=== PATIENT | female | born 1985 | race Caucasian/White ===

== ENCOUNTER 2017-05-01 22:32 | Emergency (ER) | payer OTHER ==
[2017-05-02 00:24] LABS: BASOPHIL % 1.6 % (0-2); PLATELET COUNT 174 x10^3mcL (130-400); RED CELL DISTRIBUTION WIDTH 14.1 % (11.5-14.5)
[2017-05-02 00:38] LABS: CALCIUM 8.9 mg/dL (8.5-10.1); CHLORIDE SERUM 106 mmol/L (98-107); CREATININE SERUM 0.7 mg/dL (0.6-1.0); GFR1 > 60 mL/min; GLUCOSE SERUM 76 mg/dL (74-106); POTASSIUM SERUM 3.3 mmol/L (3.5-5.1); SODIUM SERUM 138 mmol/L (136-145)
[2017-05-02 00:43] LABS: ALBUMIN 3.8 g/dL (3.4-5.0); ALKALINE PHOSPHATASE 87 U/L (46-116); ALT/SGPT 23 U/L (14-59); AST/SGOT 15 U/L (15-37); BILIRUBIN TOTAL 0.3 mg/dL (0.20-1.00); TOTAL PROTEIN, SERUM 7.3 g/dL (6.4-8.2)
[2017-05-02 00:57] LABS: CK-MB < 0.5 ng/mL (0-3.6); CREATINE KINASE 63 U/L (26-192)
[2017-05-02 02:27] VITALS: BP 126/78
== END 2017-05-02 02:27 | disposition left against medical advice (07) ==
LOC: ED 22:32 → DU 05-02 01:34
PROVIDERS: Emergency Medicine
DX: I26.09 Other pulmonary embolism with acute cor pulmonale (principal)
CPT/HCPCS: 83880; J2270; J7030; J7613; J7644; Q0092; Q9967

== ENCOUNTER 2017-05-28 02:07 | Inpatient (IN) | payer OTHER ==
[~2017-05-28] VITALS: Ht 167.6 cm; Wt 71.8 kg
[2017-05-28 03:04] LABS: BASOPHIL % 0.7 % (0-2); PLATELET COUNT 182 x10^3mcL (130-400); RED CELL DISTRIBUTION WIDTH 14.2 % (11.5-14.5)
[2017-05-28 03:12] LABS: CALCIUM 8.5 mg/dL (8.5-10.1); CARBON DIOXIDE 28.2 mmol/L (21-32); CHLORIDE SERUM 107 mmol/L (98-107); CREATININE SERUM 0.6 mg/dL (0.6-1.0); GFR1 > 60 mL/min; GLUCOSE SERUM 64 mg/dL (74-106); POTASSIUM SERUM 3.2 mmol/L (3.5-5.1); SODIUM SERUM 144 mmol/L (136-145)
[2017-05-28 03:17] LABS: ALBUMIN 3.8 g/dL (3.4-5.0); ALKALINE PHOSPHATASE 76 U/L (46-116); ALT/SGPT 25 U/L (14-59); AST/SGOT 18 U/L (15-37); BILIRUBIN TOTAL 0.26 mg/dL (0.20-1.00); TOTAL PROTEIN, SERUM 7.2 g/dL (6.4-8.2)
[2017-05-28 04:44] LABS: AMPHETAMINE QUAL UR POSITIVE (NEG <=1000)
[2017-05-28 08:30] VITALS: BP 98/62
[2017-05-28 09:11] LABS: FREE T4 1.12 ng/dL (0.76-1.46)
[2017-05-28 09:24] LABS: T3 TOTAL 0.94 ng/mL
[2017-05-28 09:28] LABS: FREE THYROXINE INDEX 3.3 ug/dL (1.4-4.5); T4(THYROXINE) 8.1 ug/dL (4.7-13.3)
[2017-05-28 09:48] VITALS: BP 98/62
[2017-05-28] MEDS ORDERED: XARELTO10 M1 PO (10:33)
[2017-05-28 11:27] LABS: microscopic required? YES; urine erythrocyte NEGATIVE (NEGATIVE)
[2017-05-28 12:12] VITALS: BP 96/65
[2017-05-28 16:13] VITALS: BP 99/66
[2017-05-28 20:47] VITALS: BP 90/48
[2017-05-28 22:43] VITALS: BP 94/57
[2017-05-29 00:04] VITALS: BP 93/60
[2017-05-29 05:34] VITALS: BP 96/66
[2017-05-29 06:45] LABS: CARBON DIOXIDE 29.2 mmol/L (21-32); CHLORIDE SERUM 110 mmol/L (98-107); POTASSIUM SERUM 4.5 mmol/L (3.5-5.1); SODIUM SERUM 141 mmol/L (136-145)
[2017-05-29 06:46] LABS: CALCIUM 7.8 mg/dL (8.5-10.1); CREATININE SERUM 0.7 mg/dL (0.6-1.0); GFR1 > 60 mL/min; GLUCOSE SERUM 87 mg/dL (74-106); MAGNESIUM 1.9 mg/dL (1.8-2.4)
[2017-05-29 08:55] LABS: BASOPHIL % 0.5 % (0-2); PLATELET COUNT 153 x10^3mcL (130-400)
[2017-05-29 08:56] LABS: RED CELL DISTRIBUTION WIDTH 14.8 % (11.5-14.5)
[2017-05-29 09:01] VITALS: BP 99/56
[2017-05-29 12:12] VITALS: BP 109/72
[2017-05-29 12:14] VITALS: BP 99/56
[2017-05-29 12:21] VITALS: BP 99/56
== END 2017-05-29 13:15 | disposition home or self-care (01) | DRG 197 ==
LOC: ED 02:07 → DU 06:04
PROVIDERS: Emergency Medicine; Internal Medicine Pulmonary Disease; ADMIT Internal Medicine Pulmonary Disease
DX: I82.433 Acute embolism and thrombosis of popliteal vein, bilateral (principal); E63.8 Other specified nutritional deficiencies; F17.200 Nicotine dependence, unspecified, uncomplicated; F15.10 Other stimulant abuse, uncomplicated; I27.82 Chronic pulmonary embolism
CPT/HCPCS: 84439; J1650; J2270; J2405; J2550; J7030; J7040; Q0092; Q9967

== ENCOUNTER 2019-04-29 05:15 | Emergency (ER) | payer SELFPAY ==
[~2019-04-29] VITALS: Ht 167.6 cm; Wt 63.5 kg
[~2019-04-29 05:15] MED LIST: XARELTO10 M1 PO
[2019-04-29 05:23] VITALS: Ht 167.6 cm; Wt 63.5 kg
[2019-04-29 05:56] VITALS: BP 112/83
== END 2019-04-29 05:56 | disposition home or self-care (01) ==
LOC: ED 05:15
DX: L03.115 Cellulitis of right lower limb (principal); F17.200 Nicotine dependence, unspecified, uncomplicated; L03.032 Cellulitis of left toe
CPT/HCPCS: J1885

== ENCOUNTER 2019-05-01 18:46 | Emergency (ER) | payer SELFPAY ==
[~2019-05-01] VITALS: Ht 167.6 cm; Wt 65.3 kg
[2019-05-01 18:49] VITALS: Ht 167.6 cm; Wt 65.3 kg
[2019-05-01 19:37] LABS: BASOPHIL % 1.4 % (0-2); PLATELET COUNT 203 x10^3mcL (130-400)
[2019-05-01 19:39] LABS: RED CELL DISTRIBUTION WIDTH 15.8 % (11.5-14.5)
[2019-05-01 19:41] LABS: CALCIUM 7.6 mg/dL (8.5-10.1); CARBON DIOXIDE 24.4 mmol/L (21-32); CHLORIDE SERUM 107 mmol/L (98-107); CREATININE SERUM 0.6 mg/dL (0.6-1.0); GFR1 > 60 mL/min; GLUCOSE SERUM 84 mg/dL (74-106); POTASSIUM SERUM 3.9 mmol/L (3.5-5.1); SODIUM SERUM 142 mmol/L (136-145)
[2019-05-01 19:47] LABS: ALKALINE PHOSPHATASE 66 U/L (46-116); ALT/SGPT 21 U/L (14-59); AST/SGOT 19 U/L (15-37); BILIRUBIN TOTAL 0.2 mg/dL (0.20-1.00)
[2019-05-01 19:49] LABS: ALBUMIN 3.1 g/dL (3.4-5.0)
[2019-05-01 21:25] VITALS: BP 100/55
== END 2019-05-01 21:25 | disposition home or self-care (01) ==
LOC: ED 18:46
PROVIDERS: Emergency Medicine
DX: I82.402 Acute embolism and thrombosis of unspecified deep veins of left lower extremity (principal); L03.116 Cellulitis of left lower limb; Z98.890 Other specified postprocedural states
CPT/HCPCS: 36415; 90715; Q0092

== ENCOUNTER 2019-08-31 20:32 | Emergency (ER) | payer SELFPAY ==
[~2019-08-31] VITALS: Ht 170.2 cm; Wt 63.0 kg
[2019-08-31 20:39] VITALS: Ht 170.2 cm; Wt 63.0 kg
[2019-08-31 23:12] LABS: BASOPHIL % 0.7 % (0-2); PLATELET COUNT 203 x10^3mcL (130-400); RED CELL DISTRIBUTION WIDTH 13.9 % (11.5-14.5)
[2019-08-31 23:16] LABS: CALCIUM 9.2 mg/dL (8.5-10.1); CARBON DIOXIDE 28.9 mmol/L (21-32); CHLORIDE SERUM 102 mmol/L (98-107); CREATININE SERUM 0.7 mg/dL (0.6-1.0); GFR1 > 60 mL/min; GLUCOSE SERUM 85 mg/dL (74-106); POTASSIUM SERUM 3.4 mmol/L (3.5-5.1); SODIUM SERUM 139 mmol/L (136-145)
[2019-09-01 05:04] VITALS: BP 117/76
== END 2019-09-01 05:04 | disposition home or self-care (01) ==
LOC: ED 20:32
PROVIDERS: Emergency Medicine
DX: M79.605 Pain in left leg (principal); M79.604 Pain in right leg
CPT/HCPCS: 36415; J2270; Q0162

== ENCOUNTER 2019-09-01 10:15 | Emergency (ER) | payer OTHER ==
[~2019-09-01] VITALS: Ht 167.6 cm; Wt 65.8 kg
[2019-09-01 10:27] VITALS: BP 133/87; Ht 167.6 cm; Wt 65.8 kg
== END 2019-09-01 10:53 | disposition other institution (70) ==
LOC: ED 10:15
DX: Z02.89 Encounter for other administrative examinations (principal)